=== PATIENT | male | born 1990 | race African-American/Black ===

== ENCOUNTER 2017-11-07 16:02 | Emergency (ER) | payer SELFPAY ==
[~2017-11-07] VITALS: Ht 175.3 cm; Wt 159.0 kg
[~2017-11-07 16:02] MED LIST: NO MEDS
[2017-11-07 22:13] VITALS: BP 130/81
[2017-11-07] MEDS ORDERED: SODIUM CHLORIDE 0.9% 1,000 ML IV ONE (22:17)
[2017-11-07] MEDS ORDERED: KETOROLAC 30MG/ML VIAL IV STA (22:17)
[2017-11-07] MEDS ORDERED: ONDANSETRON HCL 4MG/2ML VIAL IV STA (22:17)
[2017-11-07 22:28] LABS: CLARITY URINE CLEAR (CLEAR); COLOR URINE YELLOW (YELLOW); KETONES URINE NEGATIVE (NEGATIVE); LEUKOCYTE ESTERASE URINE NEGATIVE (NEGATIVE); NITRITE URINE NEGATIVE (NEGATIVE); OCCULT BLOOD URINE 3+ (NEGATIVE); PROTEIN URINE 3+ (NEGATIVE); SPECIFIC GRAVITY URINE 1.019 (1.005-1.030); UROBILINOGEN URINE 0.2 E.U./dL (0.2-1.0)
[2017-11-07 22:49] LABS: *AMPHETAMINES SCREEN URINE NEGATIVE (NEGATIVE); *BARBITURATES SCREEN URINE NEGATIVE (NEGATIVE); *BENZODIAZEPINES SCREEN URINE NEGATIVE (NEGATIVE); *COCAINE SCREEN URINE NEGATIVE (NEGATIVE); CANNABINOID URINE SCREEN NEGATIVE (NEGATIVE); METHADONE URINE SCREEN NEGATIVE (NEGATIVE); OPIATES URINE SCREEN NEGATIVE (NEGATIVE); PHENCYCLIDINE URINE SCREEN NEGATIVE (NEGATIVE)
[2017-11-07 22:54] LABS: BASOPHILS % 0.7 % (0.0-2.0); HEMATOCRIT. 36.1 % (42.0-52.0); HEMOGLOBIN. 12.6 g/dL (14.0-18.0); LYMPHOCYTES % 34.1 % (20.0-50.0); MEAN CORPUSCULAR HEMOGLOBIN 28.7 pg (28.0-32.0); MEAN PLATELET VOLUME 8.3 fl (7.4-10.4); MONOCYTES % 8.5 % (2.0-8.0); NEUTROPHILS % 54.7 % (40.0-76.0); PLATELET 325 x1000/uL (130-400); RED CELL DISTRIBUTION WIDTH 15.6 % (11.6-14.6)
[2017-11-07 22:58] LABS: CHLORIDE 106 mEq/L (98-107)
[2017-11-07 23:01] LABS: PROTHROMBIN TIME 10.6 sec (9.4-11.6)
[2017-11-07 23:07] LABS: ETHANOL BLOOD < 10 mg/dL
[2017-11-08] MEDS ORDERED: CEFTRIAXONE 1 G PREMIX 50 ML IV ONE (02:15)
== END 2017-11-08 03:55 | disposition home or self-care (01) ==
LOC: ER 16:35
DX: R10.9 Unspecified abdominal pain (principal); R05 Cough; R09.89 Other specified symptoms and signs involving the circulatory and respiratory systems; M54.9 Dorsalgia, unspecified
CPT/HCPCS: 36415; 71045; 74176; 80053; 80305; 81001; 83690; 85025; 85610; 87086; 96361; 96365; 96375; 99285; G0482; J0696; J1885; J2405; J7030; Z7610

== ENCOUNTER 2019-10-27 05:27 | Emergency (ER) | payer MEDICAID ==
[~2019-10-27] VITALS: Ht 180.3 cm; Wt 111.0 kg
[2019-10-27 06:41] LABS: BASOPHILS % 1.1 % (0.0-2.0); EOSINOPHILS % 3.3 % (0.0-5.0); HEMATOCRIT. 30.3 % (42.0-52.0); HEMOGLOBIN. 10.9 g/dL (14.0-18.0); LYMPHOCYTES % 29.9 % (20.0-50.0); MEAN CORPUSCULAR HEMOGLOBIN 31.3 pg (28.0-32.0); MEAN CORPUSCULAR VOLUME 87.4 fL (80.0-94.0); MEAN PLATELET VOLUME 8.4 fl (7.4-10.4); MONOCYTES % 9.1 % (2.0-8.0); NEUTROPHILS % 56.6 % (40.0-76.0); PLATELET 209 x1000/uL (130-400); RED BLOOD CELL COUNT 3.47 mill/uL (4.7-6.1); RED CELL DISTRIBUTION WIDTH 15.2 % (11.6-14.6)
[2019-10-27 06:43] LABS: CHLORIDE 107 mEq/L (98-107)
[2019-10-27 06:59] LABS: CLARITY URINE CLEAR (CLEAR); COLOR URINE YELLOW (YELLOW); KETONES URINE NEGATIVE (NEGATIVE); LEUKOCYTE ESTERASE URINE NEGATIVE (NEGATIVE); NITRITE URINE NEGATIVE (NEGATIVE); OCCULT BLOOD URINE 1+ (NEGATIVE); PH URINE 5.5 (4.5-8.0); PROTEIN URINE 2+ (NEGATIVE); SPECIFIC GRAVITY URINE 1.008 (1.005-1.030); UROBILINOGEN URINE 0.2 E.U./dL (0.2-1.0)
[2019-10-27 07:42] VITALS: BP 147/87
== END 2019-10-27 07:43 | disposition home or self-care (01) ==
LOC: ER 05:27
DX: Z91.15 Patient's noncompliance with renal dialysis (principal); Z88.9 Allergy status to unspecified drugs, medicaments and biological substances
CPT/HCPCS: 36415; 80053; 81003; 85025; 99283; Z7610

== ENCOUNTER 2020-09-05 18:31 | Emergency (ER) | payer MEDICAID ==
[~2020-09-05] VITALS: Ht 177.8 cm; Wt 105.0 kg
[~2020-09-05 18:31] MED LIST changes: +CALC667T2 PO; +DOCU-138 PO; +LABE300T3 PO; +NIFE-32 PO; -NO MEDS
[2020-09-05 20:52] LABS: BASOPHILS % 1.2 % (0.0-2.0); EOSINOPHILS % 3.3 % (0.0-5.0); HEMATOCRIT. 27.5 % (42.0-52.0); HEMOGLOBIN. 9.4 g/dL (14.0-18.0); LYMPHOCYTES % 31.7 % (20.0-50.0); MEAN CORPUSCULAR HEMOGLOBIN 29.1 pg (28.0-32.0); MEAN CORPUSCULAR VOLUME 85.1 fL (80.0-94.0); MEAN PLATELET VOLUME 8.1 fl (7.4-10.4); NEUTROPHILS % 54.8 % (40.0-76.0); PLATELET 235 x1000/uL (130-400); RED BLOOD CELL COUNT 3.23 mill/uL (4.7-6.1); RED CELL DISTRIBUTION WIDTH 18.9 % (11.6-14.6)
[2020-09-05 20:56] LABS: CHLORIDE 105 mEq/L (98-107)
[2020-09-05] MEDS ORDERED: IOHEXOL-350 100 ML BOTTLE ONE (23:16)
[2020-09-06 00:20] VITALS: BP 174/82
== END 2020-09-06 00:20 | disposition home or self-care (01) ==
LOC: ER 18:31
DX: R06.00 Dyspnea, unspecified (principal); F17.290 Nicotine dependence, other tobacco product, uncomplicated; I13.2 Hypertensive heart and chronic kidney disease with heart failure and with stage 5 chronic kidney disease, or end stage renal disease; N18.6 End stage renal disease; Z99.2 Dependence on renal dialysis; Z79.899 Other long term (current) drug therapy
CPT/HCPCS: 36415; 71045; 71275; 80053; 83880; 84484; 85025; 85379; 93005; 99285; Q9967

== ENCOUNTER 2020-12-01 09:50 | Inpatient (IN) | payer MEDICAID ==
[~2020-12-01] VITALS: Ht 180.3 cm; Wt 94.6 kg
[~2020-12-01 09:50] MED LIST changes: +ALBU18HF2 IH; +IPRA3AMP9 NEB; +PULM50 NEB
[2020-12-01] MEDS ORDERED: SODIUM CHLORIDE 0.9% 1,000 ML IV ONE (10:15)
[2020-12-01 10:36] LABS: EOSINOPHILS % 3.3 % (0.0-5.0); LYMPHOCYTES % 22.8 % (20.0-50.0); MEAN CORPUSCULAR VOLUME 86.9 fL (80.0-94.0); MEAN PLATELET VOLUME 8.2 fl (7.4-10.4); MONOCYTES % 7.1 % (2.0-8.0); NEUTROPHILS % 65.8 % (40.0-76.0); PLATELET 188 x1000/uL (130-400); RED CELL DISTRIBUTION WIDTH 20.1 % (11.6-14.6)
[2020-12-01 10:48] LABS: HEMOGLOBIN. 6.9 g/dL (14.0-18.0)
[2020-12-01 10:53] LABS: CHLORIDE 103 mEq/L (98-107)
[2020-12-01] MEDS ORDERED: VANCOMYCIN 1 G PREMIX 200 ML IV ONE (11:30)
[2020-12-01] MEDS ORDERED: PIPERACILLIN/TAZ 3.375G PREMIX 50 ML IV ONE (11:30)
[2020-12-01 16:02] VITALS: BP_SYST 106; BP_SYST 128; BP_DIAS 70
[2020-12-01 20:00] VITALS: BP 142/78
[2020-12-02] VITALS (9 sets, daily range): BP systolic 132–177; BP diastolic 76–111
[2020-12-02] MEDS ORDERED: CLONIDINE 0.1MG TABLET PO PRN (06:15)
[2020-12-02 08:09] LABS: BASOPHILS % 0.8 % (0.0-2.0); EOSINOPHILS % 3.1 % (0.0-5.0); HEMATOCRIT. 21.3 % (42.0-52.0); HEMOGLOBIN. 7.4 g/dL (14.0-18.0); LYMPHOCYTES % 26.3 % (20.0-50.0); MEAN CORPUSCULAR HEMOGLOBIN 30.2 pg (28.0-32.0); MEAN CORPUSCULAR VOLUME 87.1 fL (80.0-94.0); MEAN PLATELET VOLUME 8.8 fl (7.4-10.4); MONOCYTES % 7.2 % (2.0-8.0); NEUTROPHILS % 62.6 % (40.0-76.0); PLATELET 181 x1000/uL (130-400); RED BLOOD CELL COUNT 2.44 mill/uL (4.7-6.1); RED CELL DISTRIBUTION WIDTH 19.6 % (11.6-14.6)
[2020-12-02] MEDS ORDERED: NIFEDIPINE XL 60MG TAB PO SCH (09:00)
[2020-12-02] MEDS: LABETALOL HCL 300MG TABLET PO SCH ×2 (10:01→21:00)
[2020-12-02] MEDS ORDERED: APIX5TAB MT (13:24)
[2020-12-02] MEDS ORDERED: APIXABAN 5 MG TABLET PO SCH (17:40)
[2020-12-03] VITALS: BP 140/86
[2020-12-03 03:35] VITALS: BP 152/85
[2020-12-03] MEDS ORDERED: EPOETIN ALFA-EPBX 10,000 UNIT/ML VIAL SUBCUT SCH (21:00)
== END 2020-12-03 04:00 | disposition home or self-care (01) | DRG 207 ==
LOC: ER 09:50 → 7EST 13:32 → CANRESERV 15:25 → ENRESERV 15:25 → 8WST 12-02 00:38
PROVIDERS: ADMIT Internal Medicine; ATTEND Internal Medicine
PROC: 5A1D70Z Performance of Urinary Filtration, Intermittent, Less than 6 Hours Per Day (ICD-10-PCS; principal; 2020-12-01)
PROC: 30233N1 Transfusion of Nonautologous Red Blood Cells into Peripheral Vein, Percutaneous Approach (ICD-10-PCS; 2020-12-01)
DX: I95.9 Hypotension, unspecified (principal); D64.9 Anemia, unspecified; N18.6 End stage renal disease; Z20.822 Contact with and (suspected) exposure to COVID-19; Z86.718 Personal history of other venous thrombosis and embolism; Z99.2 Dependence on renal dialysis; Z79.899 Other long term (current) drug therapy; J84.9 Interstitial pulmonary disease, unspecified; R91.8 Other nonspecific abnormal finding of lung field; I13.2 Hypertensive heart and chronic kidney disease with heart failure and with stage 5 chronic kidney disease, or end stage renal disease; I50.9 Heart failure, unspecified; E43 Unspecified severe protein-calorie malnutrition; Z68.29 Body mass index [BMI] 29.0-29.9, adult
CPT/HCPCS: 36415; 71045; 80048; 80053; 83605; 83880; 84484; 85025; 86850; 86900; 86920; 93005; 93971; 99285; J2543; J3370; J7030; J7040; P9016; U0003

== ENCOUNTER 2022-02-04 08:20 | Emergency (ER) | payer MEDICAID, OTHER ==
[~2022-02-04] VITALS: Ht 182.9 cm; Wt 114.0 kg
[~2022-02-04 08:20] MED LIST changes: +APIX5TAB MT
[2022-02-04] MEDS ORDERED: HYDROCODONE/ACETAMINOPHEN 5/325MG TABLET PO ONE (09:15)
[2022-02-04 09:43] VITALS: BP 109/62
[2022-02-04] MEDS ORDERED: HYDR-4001 MT (09:50)
== END 2022-02-04 10:29 | disposition home or self-care (01) ==
LOC: ER 08:20
DX: M25.461 Effusion, right knee (principal)
CPT/HCPCS: 73560; 99283

== ENCOUNTER 2022-03-18 13:13 | Emergency (ER) | payer OTHER ==
[~2022-03-18] VITALS: Ht 177.8 cm; Wt 90.0 kg
[~2022-03-18 13:13] MED LIST changes: +HYDR-4001 MT
[2022-03-18] MEDS ORDERED: HYDROCODONE/ACETAMINOPHEN 5/325MG TABLET PO ONE (13:30)
[2022-03-18 15:15] VITALS: BP 126/66
== END 2022-03-18 15:17 | disposition home or self-care (01) ==
LOC: ER 13:13
DX: M79.644 Pain in right finger(s) (principal); M79.89 Other specified soft tissue disorders; Z99.2 Dependence on renal dialysis; Z98.890 Other specified postprocedural states; Z79.899 Other long term (current) drug therapy
CPT/HCPCS: 73110; 73130; 99284

== ENCOUNTER 2022-05-31 07:59 | Emergency (ER) | payer MEDICAID, OTHER ==
[~2022-05-31] VITALS: Ht 180.3 cm; Wt 97.0 kg
[2022-05-31 08:22] VITALS: BP 167/112
[2022-05-31] MEDS ORDERED: AMOX1TAB16 MT (10:15)
[2022-05-31] MEDS ORDERED: TOPUD MT (10:15)
== END 2022-05-31 10:28 | disposition home or self-care (01) ==
LOC: ER 07:59
DX: H66.91 Otitis media, unspecified, right ear (principal); I12.0 Hypertensive chronic kidney disease with stage 5 chronic kidney disease or end stage renal disease; N18.6 End stage renal disease; Z94.0 Kidney transplant status; Z99.2 Dependence on renal dialysis
CPT/HCPCS: 99281